=== PATIENT | male | born 2000 | race Hispanic/Latino ===

== ENCOUNTER 2021-06-17 06:56 | Outpatient (CLI) | payer OTHER | END 2021-06-17 06:57 | disposition home or self-care (01) | LOC: BICULT 06:56 | PROVIDERS: ATTEND Family Medicine | DX: E80.6 Other disorders of bilirubin metabolism (principal); R74.01 Elevation of levels of liver transaminase levels | CPT/HCPCS: 76705 ==

== ENCOUNTER 2021-07-04 05:57 | Day surgery (SDC) | payer OTHER ==
[2021-07-03 10:51] VITALS: BMI 34.8
[2021-07-04] MEDS ORDERED: cefOXitin Sodium/Dextrose 2 GM/50 ML BAG ONE (07:07)
[2021-07-04] MEDS ORDERED: Lidocaine 1% w/Epinephrine 1:100K 20 ML VIAL ONE (08:13)
[2021-07-04] MEDS ORDERED: Bupivacaine 0.25% HCL 30 ML VIAL ONE (08:13)
[2021-07-04] MEDS ORDERED: Fentanyl 100 MCG/2 ML VIAL ONE ×2 (08:17→09:23)
[2021-07-04] MEDS ORDERED: Lidocaine 2% Jelly 5 ML TUBE ONE (08:17)
[2021-07-04] MEDS ORDERED: PROPOFOL 200 MG/20 ML VIAL ONE (08:30)
[2021-07-04] MEDS ORDERED: Dexamethasone 20 MG/5 ML VIAL ONE (08:30)
[2021-07-04] MEDS ORDERED: Glycopyrrolate 0.2 MG/ML 5 ML SYRINGE ONE ×2 (08:30)
[2021-07-04] MEDS ORDERED: Lidocaine 1% PF 5 ML VIAL ONE (08:30)
[2021-07-04] MEDS ORDERED: Ketorolac Tromethamine 30 MG/ML VIAL ONE (08:30)
[2021-07-04] MEDS ORDERED: Rocuronium Bromide 10 MG/ML (10ML VIAL) ONE (08:30)
[2021-07-04] MEDS ORDERED: ePHEDrine 50 MG/ML VIAL ONE (08:30)
[2021-07-04] MEDS ORDERED: Ondansetron PF 4 MG/2 ML Vial ONE (08:30)
== END 2021-07-04 10:55 | disposition home or self-care (01) ==
LOC: SDC 05:57
PROVIDERS: ATTEND Surgery
PROC: 0FT44ZZ Resection of Gallbladder, Percutaneous Endoscopic Approach (ICD-10-PCS; principal; 2021-07-04)
DX: K80.10 Calculus of gallbladder with chronic cholecystitis without obstruction (principal); E66.9 Obesity, unspecified; Z68.34 Body mass index [BMI] 34.0-34.9, adult
CPT/HCPCS: 88304; J0694; J1100; J1885; J2405; J2704; J3010; J3490; S0020

== ENCOUNTER 2023-06-25 08:50 | Outpatient (CLI) | payer OTHER | END 2023-06-25 08:51 | disposition home or self-care (01) | LOC: SCSMRI 08:50 | PROVIDERS: ATTEND Student in an Organized Health Care Education/Training Program | DX: M25.562 Pain in left knee (principal); M23.612 Other spontaneous disruption of anterior cruciate ligament of left knee; S83.282A Other tear of lateral meniscus, current injury, left knee, initial encounter; M94.8X6 Other specified disorders of cartilage, lower leg; S80.02XA Contusion of left knee, initial encounter; M25.462 Effusion, left knee ==

== ENCOUNTER 2023-07-29 15:47 | Outpatient (CLI) | payer OTHER ==
[2023-07-29 16:35] LABS: #Basophils 0.1 10x3/uL (0.0-0.2); #Eosinphils 0.1 10x3/uL (0.0-0.5); #Monocytes 0.4 10x3/uL (0.0-1.1); #Neutrophils 4.5 10x3/uL (1.5-8.4); %Basophils 0.7 % (0.0-2.0); %Eosinophils 1.8 % (0.0-6.0); %Lymphocytes 26.4 % (18.0-47.0); %Monocytes 5.3 % (0.0-10.0); %Neutrophils 64.1 % (40.0-75.0); Hemoglobin 16.1 g/dL (13.5-17.5); Mean Corpuscular HGB CONC 33.5 g/dL (32.0-36.0); Mean Corpuscular Hemoglobin 29.4 pg (27.0-33.0); Mean Corpuscular Volume 87.8 fl (81.2-95.1); Platelet Count 200 10x3/uL (150-450); RBC Distribution Width 12.4 % (11.5-14.5); Red Blood Cell (RBC) Count 5.47 10x6/uL (4.32-5.72)
[2023-07-29 17:16] LABS: Anion Gap 11 mmol/L (10-20); BUN (Urea Nitrogen) 10 mg/dL (8.9-20.6); Calc. Creatinine Clearance 0 mL/min (70-130); Calcium 9.5 mg/dL (7.8-10.44); Carbon Dioxide 29 mmol/L (22-29); Chloride 103 mmol/L (98-107); Estimated GFR 115; Glucose 92 mg/dL (70-105); Potassium 4.4 mmol/L (3.5-5.1); Sodium 139 mmol/L (136-145)
== END 2023-07-29 15:48 | disposition home or self-care (01) ==
LOC: LABBT 15:47
PROVIDERS: ATTEND Orthopaedic Surgery
DX: Z01.812 Encounter for preprocedural laboratory examination (principal); S83.512A Sprain of anterior cruciate ligament of left knee, initial encounter; S83.282A Other tear of lateral meniscus, current injury, left knee, initial encounter
CPT/HCPCS: 80048; 85025

== ENCOUNTER 2023-07-30 05:35 | Observation (INO) | payer OTHER ==
[2023-07-28 14:38] VITALS: BMI 32.1
[2023-07-30] MEDS ORDERED: Fentanyl 250 MCG/5 ML VIAL ONE (06:16)
[2023-07-30] MEDS ORDERED: Midazolam HCl 2 mg/2 ml Vial ONE (06:16)
[2023-07-30] MEDS ORDERED: Bupivacaine PF 0.5% 30 ML VIAL ONE (06:40)
[2023-07-30] MEDS ORDERED: Vancomycin (BATCH) 1.5 GRAM/300 ML BAG ONE (06:41)
[2023-07-30] MEDS ORDERED: PROPOFOL 200 MG/20 ML VIAL ONE (06:55)
[2023-07-30] MEDS ORDERED: Ondansetron PF 4 MG/2 ML Vial ONE (06:55)
[2023-07-30] MEDS ORDERED: CEFAZOLIN 2 GM VIAL ONE (07:09)
[2023-07-30] MEDS ORDERED: Sodium Chloride 0.9% 100 ML ONE (07:09)
[2023-07-30] MEDS ORDERED: fentaNYL 50 mcg/mL 1 mL Vial SLOW IVP PRN (07:24)
[2023-07-30] MEDS ORDERED: Ondansetron PF 4 MG/2 ML Vial IVP PRN (07:30)
[2023-07-30] MEDS ORDERED: Zolpidem Tartrate 5 MG TAB PO PRN (07:30)
[2023-07-30] MEDS ORDERED: HYDROcodone/Acetaminophen 10/325 mg Tablet PO PRN ×2 (07:30)
[2023-07-30] MEDS ORDERED: Ropivacaine 0.2% 550 ML 550 ML NERVE BLCK SCH (07:30)
[2023-07-30] MEDS ORDERED: Promethazine HCl 25 MG/ML VIAL IM PRN ×2 (07:30→07:46)
[2023-07-30] MEDS ORDERED: traMADol HCl 50 MG TAB PO PRN ×2 (07:30)
[2023-07-30] MEDS ORDERED: Ketorolac Tromethamine 30 MG/ML VIAL IVP PRN (07:46)
[2023-07-30] MEDS ORDERED: Ondansetron HCl/PF 4 MG/2 ML Vial IVP PRN (07:46)
[2023-07-30] MEDS ORDERED: Meperidine HCl/PF 25 MG/ML VIAL SLOW IVP PRN (07:46)
[2023-07-30] MEDS ORDERED: HYDROmorphone 2 MG/ML VIAL SLOW IVP PRN (07:46)
[2023-07-30] MEDS ORDERED: Bisacodyl 10 MG SUPP PR PRN (08:42)
[2023-07-30] MEDS ORDERED: Methocarbamol 500 MG TAB PO PRN (08:42)
[2023-07-30] MEDS ORDERED: Acetaminophen 500 MG TAB PO PRN (08:42)
[2023-07-30] MEDS ORDERED: HYDROcodone/Acetaminophen 7.5/325 mg Tablet PO PRN ×2 (08:42)
[2023-07-30] MEDS ORDERED: Milk Of Magnesia 30 ML UDCUP PO PRN (08:42)
[2023-07-30] MEDS ORDERED: diphenhydrAMINE 50 MG CAP PO PRN (08:42)
[2023-07-30] MEDS ORDERED: fentaNYL 50 mcg/mL 1 mL Vial ONE ×3 (09:26→10:28)
[2023-07-30] MEDS ORDERED: Promethazine HCl 25 MG/ML VIAL ONE (09:33)
[2023-07-30] MEDS: Ketorolac Tromethamine 30 MG/ML VIAL IVP SCH ×2 (15:03→17:53)
[2023-07-30] MEDS: Famotidine 20 MG TAB PO SCH ×2 (15:03→21:23)
[2023-07-30] MEDS: Dextrose 5 %-0.45 % NaCl 1,000 ML IV SCH ×2 (15:03→15:20)
[2023-07-30] MEDS: CEFAZOLIN 2 GM in Sodium Chloride 0.9% 100 ML IVPB SCH (15:20)
[2023-07-31] MEDS: Ketorolac Tromethamine 30 MG/ML VIAL IVP SCH ×3 (00:22→10:46)
[2023-07-31] MEDS: CEFAZOLIN 2 GM in Sodium Chloride 0.9% 100 ML IVPB SCH (00:22)
[2023-07-31] MEDS: Dextrose 5 %-0.45 % NaCl 1,000 ML IV SCH (06:09)
[2023-07-31 08:23] VITALS: BP 117/72; TEMP 98.1
[2023-07-31] MEDS: Famotidine 20 MG TAB PO SCH (08:47)
== END 2023-07-31 11:55 | disposition home or self-care (01) ==
LOC: SDC 05:35 → SURG B 08:42
PROVIDERS: ADMIT Orthopaedic Surgery; ATTEND Orthopaedic Surgery
PROC: 0MQP4ZZ Repair Left Knee Bursa and Ligament, Percutaneous Endoscopic Approach (ICD-10-PCS; principal; 2023-07-31)
DX: S83.512A Sprain of anterior cruciate ligament of left knee, initial encounter (principal); S83.282A Other tear of lateral meniscus, current injury, left knee, initial encounter; X58.XXXA Exposure to other specified factors, initial encounter
CPT/HCPCS: 96365; 96375; 96376; C1713; C1889; G0378; J1885; J2250; J2405; J2550; J2704; J3010; J3370; J3490; J7042; S0020